=== PATIENT | male | born 1990 | race Hispanic/Latino ===

== ENCOUNTER 2022-03-20 15:46 | Observation (INO) | payer SELFPAY ==
[2022-03-20] MEDS ORDERED: HYDROCODONE/APAP 7.5/325 MG TAB ONE (17:52)
[2022-03-20] MEDS ORDERED: TETANUS & DIPHTHERIA TOX,ADULT 0.5 ML VIAL ONE (17:52)
--- NOTE | 2022-03-20 18:52 | ER ---
Nurse's Notes [facility] Name: Amari Hernandes Age: 31 yrs Sex: Male : 1990 Arrival Date: 03/20/2022 Time: 15:46 Bed 7 Private MD: Diagnosis: Laceration of extensor muscle, fascia and tendon of left index finger at wrist and hand level, initial encounter Presentation: 03/20 17:00 Chief complaint: Patient states: cut left index finger with serrated knife. Coronavirus iw screen: At this time, the client does not indicate any symptoms associated with coronavirus-19. Ebola Screen: Patient negative for fever greater than or equal to 101.5 degrees Fahrenheit, and additional compatible Ebola Virus Disease symptoms Patient denies exposure to infectious person. Patient denies travel to an Ebola-affected area in the 21 days before illness onset. No symptoms or risks identified at this time. Complicating Factors: There are no complicating factors for this patient. Initial Sepsis Screen: Does the patient meet any 2 criteria? No. Patient's initial sepsis screen is negative. Does the patient have a suspected source of infection? No. Patient's initial sepsis screen is negative. Risk Assessment: Do you want to hurt yourself or someone else? Patient reports no desire to harm self or others. Onset of symptoms was March 20, 2022. 17:00 Method Of Arrival: Ambulatory iw 17:00 Acuity: SHA 4 iw Historical: - Allergies: 17:01 No Known Allergies; iw - Home Meds: 19:22 None [Active]; ss - PMHx: 19:22 None; ss - PSHx: 19:22 None; ss - Immunization history:: Last tetanus immunization: unknown. - Social history:: Smoking status: Patient denies any tobacco usage or history of. Screenin:22 Abuse screen: Denies threats or abuse. Denies injuries from another. Nutritional ss screening: No deficits noted. Tuberculosis screening: Never had TB. Fall Risk None identified. Assessment: 17:15 General: Appears in no apparent distress. comfortable, Behavior is calm, cooperative. ss Pain: Complains of pain in dorsal aspect of middle phalanx of left index finger. Neuro: Level of Consciousness is awake, alert, obeys commands, Oriented to person, place, time, situation. Cardiovascular: Capillary refill < 3 seconds is brisk in bilateral fingers. Respiratory: Airway is patent Respiratory effort is even, unlabored, Respiratory pattern is regular, symmetrical. EENT: Nares are clear. Derm: Skin is intact, is healthy with good turgor. Musculoskeletal: No signs and/or symptoms reported regarding the musculoskeletal system. Injury Description: Laceration sustained to dorsal aspect of middle phalanx of left index finger is jagged, 0.5 to 2.5 cm long. 19:35 Reassessment: Patient appears in no apparent distress at this time. Patient and/or as6 family updated on plan of care and expected duration. Pain level reassessed. Patient is alert, oriented x 3, equal unlabored respirations, skin warm/dry/pink. pt denies pain at this time. Vital Signs: 17:00 Pulse 72; Resp 16; Temp 98.5; Pulse Ox 100% ; iw 17:04 BP 138 / 82; Pulse 76; Resp 16; Pulse Ox 98% ; ss 19:34 BP 153 / 98; Pulse 71; Resp 18 S; Pulse Ox 100% on R/A; Pain 0/10; as6 ED Course: 15:46 Patient arrived in ED. as 16:18 Eduard Lamar PA is PHCP. cp 16:18 Barbie Ortiz MD is Attending Physician. cp 17:01 Triage completed. iw 17:01 Arm band placed on. iw 17:46 Katiana Cramer, RAND is Primary Nurse. ss 18:27 XRAY Finger-Thumb Left In Process Unspecified. EDMS 18:49 Chante Moy PA is Hospitalizing Provider. cp 18:58 COVID-19 SARS RT PCR (Document "Date of Onset" if Symptomatic) Sent. ss 19:22 Patient has correct armband on for positive identification. Bed in low position. Call ss light in reach. 20:59 Danilo Souza is Hospitalizing Provider. cp 21:19 Inserted saline lock: 20 gauge in right antecubital area, using aseptic technique. lg3 21:30 No provider procedures requiring assistance completed. Patient admitted, IV remains in lg3 place. 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 Exp: ss 02/10/2024. Lot #: [id number]. } Route: IM; Site: right deltoid; 22:18 Follow up: Response: No adverse reaction as6 19:41 Not Given (Other Intervention Used): Lidocaine (2 %) 5 ml 5 ml Infiltration once; to as6 bedside Outcome: 18:51 Decision to Hospitalize by Provider. cp 19:22 Instructed on the need for admit. ss 21:30 Admitted to Med/surg accompanied by tech, via wheelchair, room 225. lg3 21:30 Condition: stable 22:18 Patient left the ED. as6 Signatures: Dispatcher [employer] EDMS Avis Caballero Irene, RN RN Katiana Cramer RN RN Eduard Lamar, RADHA PA Cindy Mcgregor RN RN lg3 Tate Gonsalez RN RN as6 Corrections: (The following items were deleted from the chart) : 19:22 General: Appears in no apparent distress. comfortable, Behavior is calm, ss cooperative, :31 19:22 Neuro: Level of Consciousness is awake, alert, obeys commands, Oriented to person, place, time, situation, : 19:22 Respiratory: Airway is patent Respiratory effort is even, unlabored, Respiratory ss pattern is regular, symmetrical, :31 19:22 Derm: Skin is intact, is healthy with good turgor, [facility] :31 19:22 Musculoskeletal: No signs and/or symptoms reported regarding the musculoskeletal ss system. 19: 19:22 Cardiovascular: Capillary refill < 3 seconds is brisk in bilateral fingers [facility] 19:31 19:22 EENT: Nares are clear [facility] 19:31 19:22 Injury Description: Laceration sustained to dorsal aspect of middle phalanx of ss left index finger is jagged, 0.5 to 2.5 cm long, :31 19:22 Pain: Complains of pain in dorsal aspect of middle phalanx of left index finger ssss
--- NOTE | 2022-03-20 18:52 | EDPHYS ---
Physician Documentation [facility] Name: Amari Hernandes Age: 31 yrs Sex: Male : 1990 Arrival Date: 03/20/2022 Time: 15:46 Bed 7 Private MD: ED Physician Barbie Ortiz HPI: 03/20 17:55 This 31 yrs old Male presents to ER via Ambulatory with complaints of cp Laceration - finger. 17:55 The patient or guardian reports a laceration, clean. The complaints affect the dorsal cp side middle phalanx left index finger. Context: The problem was sustained at work, resulted from use of knife. 17:55 Onset: The symptoms/episode began/occurred just prior to arrival. Associated signs and cp symptoms: Pertinent negatives: cyanosis distally, decreased sensation distally. Historical: - Allergies: 17:01 No Known Allergies; iw - Home Meds: 19:22 None [Active]; ss - PMHx: 19:22 None; ss - PSHx: 19:22 None; ss - Immunization history:: Last tetanus immunization: unknown. - Social history:: Smoking status: Patient denies any tobacco usage or history of. ROS: 18:00 Skin: Positive for laceration(s), of the left index finger. cp 18:00 Constitutional: Negative for body aches, chills, fever. cp 18:00 Respiratory: Negative for cough, shortness of breath, wheezing. 18:00 Abdomen/GI: Negative for abdominal pain. 18:00 Neuro: Negative for numbness, tingling. 18:00 All other systems are negative. Exam: 18:10 Head/Face: Normocephalic, atraumatic. cp 18:10 Constitutional: The patient appears in no acute distress, alert, awake, non-toxic, well developed, well nourished. 18:10 Cardiovascular: Rate: normal, Rhythm: regular. 18:10 Respiratory: the patient does not display signs of respiratory distress, Respirations: normal, no use of accessory muscles, no retractions, labored breathing, is not present, Breath sounds: are clear throughout, no decreased breath sounds, no stridor, no wheezing. 18:10 Abdomen/GI: Exam negative for discomfort, distension, guarding, Inspection: abdomen appears normal. 18:10 Skin: injury, laceration(s), the wound is approximately 3.5 cm(s), of the dorsal side middle phalanx left index finger, that can be described as clean, no foreign body, linear, with mild bleeding, extensor tendon appears injured as patient unable to fully extend left index finger. Vital Signs: 17:00 Pulse 72; Resp 16; Temp 98.5; Pulse Ox 100% ; iw 17:04 BP 138 / 82; Pulse 76; Resp 16; Pulse Ox 98% ; ss 19:34 BP 153 / 98; Pulse 71; Resp 18 S; Pulse Ox 100% on R/A; Pain 0/10; as6 Laceration: 20:00 Wound Repair of 3.5cm ( 1.4in ) subcutaneous laceration to dorsal aspect of middle cp phalanx of left index finger. Linear shaped.. Distal neuro/vascular/tendon intact. Anesthesia: Wound infiltrated with 4 mls of 2% lidocaine. Wound prep: Moderate cleansing by me, Wound irrigation by me. Skin closed with 4 4-0 Prolene using interrupted sutures and sterile technique. Dressed with Bacitracin, 4x4's. Patient tolerated well. MDM: 17:10 Patient medically screened. cp 18:23 Physician consultation: Dandy Patton MD was called at 18:20, was contacted at 18:20, cp regarding consult, patient's condition, wants patient admitted to hospitalist and will perform tendon repair tomorrow in OR. 18:50 Data reviewed: vital signs, nurses notes, radiologic studies, plain films. cp 18:50 Differential diagnosis: dislocation, open fracture, closed fracture, tendon laceration. cp Counseling: I had a detailed discussion with the patient and/or guardian regarding: the historical points, exam findings, and any diagnostic results supporting the discharge/admit diagnosis, radiology results, the need for further work-up and treatment in the hospital. 03/20 18:48 Order name: COVID-19 SARS RT PCR (Document "Date of Onset" if Symptomatic) 03/20 17:45 Order name: XRAY Finger-Thumb Left; Complete Time: 19:02 cp 03/20 18:20 Order name: Wound Care: please clean and irrigate wound; Complete Time: 19:41 cp 03/20 18:49 Order name: Dressing - Wound; Complete Time: 19:41 cp 03/20 18:49 Order name: Setup Suture Tray; Complete Time: 18:58 cp Administered Medications: 17:50 Drug: Hydrocodone-Acetaminophen (7.5 mg-325 mg) 1 tabs Route: PO; ss 21:19 Follow up: Response: No adverse reaction lg3 21:19 Follow up: Response: RASS: Alert and Calm (0) lg3 17:52 Drug: Tetanus-Diphtheria Toxoid Adult 0.5 ml {[employer]: [employer]. Exp: ss 02/10/2024. Lot #: [id number]. } Route: IM; Site: right deltoid; 22:18 Follow up: Response: No adverse reaction as6 19:41 Not Given (Other Intervention Used): Lidocaine (2 %) 5 ml 5 ml Infiltration once; to as6 bedside Disposition Summary: 03/20/22 18:51 Hospitalization Ordered Hospitalization Status: Observation cp Location: Telemetry/MedSurg (observation) cp Condition: Stable cp Problem: new cp Symptoms: have improved cp Bed/Room Type: Standard cp Room Assignment: [facility](03/20/22 20:45) Provider: Danilo Souza(03/20/22 20:59) cp Diagnosis - Laceration of extensor muscle, fascia and tendon of left index finger at wrist and cp hand level, initial encounter Forms: - Medication Reconciliation Form cp - SBAR form cp Addendum: 03/22/2022 18:37 Co-signature as Attending Physician, Barbie levine a2 Signatures: Dispatcher [employer] EDMaryjane Bullock RN RN Katiana Cramer RN RN Eduard Lamar PA PA cp Kiersten Resendez RN RN Barbie Ortiz MD MD ma2 Chante Moy PA PA sb3 Cindy Lozano RN lg3 Tate Gonsalez RN as6 Corrections: (The following items were deleted from the chart) 03/20 19:41 18:49 Sterile Gloves ordered. cp as6 20:45 18:51 cp cg 20:59 18:51 Chante Moy cp cp
--- NOTE | 2022-03-20 18:53 | RAD REPORT ---
EXAM DESCRIPTION: - Finger-Thumb Left - 03/20/2022 6:25 pm CLINICAL HISTORY: lacerationsecond digit COMPARISON: No comparisons FINDINGS: Three views of the left second digit obtained. No bone or joint abnormality identified. No air or foreign body in the soft tissues.
--- NOTE | 2022-03-20 19:01 | P.HP ---
Certification for Inpatient Patient admitted to: Observation With expected LOS: <2 Midnights Patient will require the following post-hospital care: None Practitioner: I am a practitioner with admitting privileges, knowledge of patient current condition, hospital course, and medical plan of care. Services: Services provided to patient in accordance with Admission requirements found in Title 42 Section 412.3 of the Code of Federal Regulations Patient History Date of Service: 03/20/22 Reason for admission: L Extensor Tendon Laceration History of Present Illness: Patient is a 31-year-old male with no medical problems who presented to the ED after cutting his left index finger with a serrated knife accidentally. Patient is primarily [place]-speaking. 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 In the ED, x-ray was negative for fracture or foreign body however it was visualized that an extensor tendon on left index finger was lacerated. Dr. Patton was called and wishes to operate on patient to repair tomorrow. Patient agrees and understands. He denies any pain at this time and reports good movement with his finger. Vital signs stable. Will admit patient for medical management. Allergies No Known Drug Allergies Allergy (Unverified 05/30/15 18:16) Unknown Home medications list reviewed: Yes - Past Medical/Surgical History Diabetic: No Past Medical History: Patient denies medical history Past Surgical History: Patient denies surgical history Psychosocial/ Personal History: Patient works at [employer]. - Family History Father -: Hypertension Mother -: Diabetes - Social History Smoking Status: Never smoker Alcohol use: No CD- Drugs: No Caffeine use: No Place of Residence: Home Review of Systems 10-point ROS is otherwise unremarkable Musculoskeletal: Other (Laceration L index finger. Denies pain) Physical Examination - Physical Exam General: Alert, In no apparent distress, Oriented x3 HEENT: Atraumatic, PERRLA, Mucous membr. moist/pink, EOMI, Sclerae nonicteric Neck: Supple, 2+ carotid pulse no bruit, No LAD, Without JVD or thyroid abnormality Respiratory: Clear to auscultation bilaterally, Normal air movement Cardiovascular: Regular rate/rhythm, Normal S1 S2 Gastrointestinal: Normal bowel sounds, No tenderness Musculoskeletal: No tenderness, Other (Laceration to L index finger extending into extensor tendon) Integumentary: No rashes Neurological: Normal gait, Normal speech, Normal strength at 5/5 x4 extr, Normal tone, Normal affect Assessment and Plan - Problems (Diagnosis) (1) Laceration of extensor tendon of hand Current Visit: Yes Status: Acute Qualifiers: Encounter type: initial encounter Laterality: left Qualified Code(s): S61.412A - Laceration without foreign body of left hand, initial encounter; S66.822A - Laceration of other specified muscles, fascia and tendons at wrist and hand level, left hand, initial encounter - Plan -NPO at midnight -IV fluids for hydration -Ancef for preoperative antibiotics -Dr. Patton to operate in the morning -Morphine as needed pain -Zofran as needed nausea -SCDs for DVT prophylaxis Discharge Plan: Home Plan to discharge in: 24 Hours - Advance Directives Does patient have a Living Will: No Does patient have a Durable POA for Healthcare: No - Code Status/Comfort Care Code Status Assessed: Yes (Full) Critical Care: No Time Spent Managing Pts Care (In Minutes): 50
[2022-03-20] MEDS ORDERED: LIDOCAINE 2% MPF 5 ML VIAL ONE (19:03)
[2022-03-20] MEDS ORDERED: MORPHINE 2 MG/ML SYR IV PRN (22:06)
[2022-03-20] MEDS ORDERED: ONDANSETRON 4 MG/2 ML VIAL IV PRN (22:06)
[2022-03-20] MEDS ORDERED: ACETAMINOPHEN 500 MG TAB PO PRN (22:06)
[2022-03-20] MEDS: NA CHLORIDE 0.9% 1,000 ML IV SCH (23:20)
[2022-03-21] MEDS: CEFAZOLIN 1 GM in NA CHLORIDE 0.9% 50 ML IVPB SCH ×2 (00:34→08:57)
[2022-03-21 04:32] VITALS: BMI 30.1
[2022-03-21 05:40] LABS: Urine Appearance Clear (Clear); Urine Bilirubin Negative (Negative); Urine Blood Negative (Negative); Urine Color Yellow (Yellow); Urine Glucose Negative (Negative); Urine Protein Negative (Negative); Urine Urobilinogen 0.2 mg/dL (0.2-1.0)
[2022-03-21 05:53] LABS: Urine Microscopic Reflex NO UMIC
[2022-03-21] MEDS: NA CHLORIDE 0.9% 1,000 ML IV SCH (09:03)
[2022-03-21] MEDS ORDERED: Ringers Lactate 1,000 ML IV ONE (11:39)
[2022-03-21] MEDS ORDERED: MIDAZOLAM HCL 2 MG/2 ML INJ ONE (14:05)
[2022-03-21] MEDS ORDERED: ONDANSETRON 4 MG/2 ML VIAL ONE ×2 (14:05→15:26)
[2022-03-21] MEDS ORDERED: LIDOCAINE 2% MPF 5 ML VIAL ONE (14:05)
[2022-03-21] MEDS ORDERED: FENTANYL CITR 100 MCG/2 ML ONE (14:05)
[2022-03-21] MEDS ORDERED: propofoL 200 MG/20 ML VIAL IV ONE (14:05)
[2022-03-21] MEDS ORDERED: CEFAZOLIN SODIUM 1 GM/VIAL ONE (14:31)
[2022-03-21] MEDS ORDERED: KETOROLAC 30 MG/ML INJ ONE (14:58)
[2022-03-21] MEDS: HYDROMORPHONE HCL 1 MG/ML INJ ONE ×4 (15:22→15:45)
[2022-03-21 15:46] VITALS: O2SAT 97
[2022-03-21] MEDS ORDERED: CODEINE 30MG/APAP 300MG TAB PO PRN (16:06)
[2022-03-21] MEDS ORDERED: CEPHALEXIN 250 MG CAP PO SCH (18:00)
--- NOTE | 2022-03-21 18:36 | P.DS ---
Admission Date: 03/20/22 Discharge Date: 03/21/22 Disposition: ROUTINE DISCHARGE Discharge Condition: FAIR Reason for Admission: L Extensor Tendon Laceration - Problems (1) Laceration of extensor tendon of hand Current Visit: Yes Status: Acute Qualifiers: Encounter type: initial encounter Laterality: left Qualified Code(s): S61.412A - Laceration without foreign body of left hand, initial encounter; S66.822A - Laceration of other specified muscles, fascia and tendons at wrist and hand level, left hand, initial encounter Brief History of Present Illness: Patient is a 31-year-old male with no medical problems who presented to the ED after cutting his left index finger with a serrated knife accidentally. Patient is primarily Indonesian-speaking. 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 In the ED, x-ray was negative for fracture or foreign body however it was visualized that an extensor tendon on left index finger was lacerated. Dr. Patton was contacted who recommended admission for surgical repair. Patient admitted for further management. Hospital Course: Patient placed on observation on the medical floor. Dr. Patton evaluated him and took him to OR, did a tendon repair. Patient cleared for discharge per Dr. Patton. He will follow-up with Dr. Patton next week in his office. Dr. Patton has prescribed him antibiotics. Vital Signs/Physical Exam: Temp Pulse Resp BP Pulse Ox 97.3 F 77 16 133/78 93 03/21/22 16:00 03/21/22 16:00 03/21/22 16:00 03/21/22 16:00 03/21/22 16:00 General: Alert, In no apparent distress, Oriented x3 HEENT: Mucous membr. moist/pink Neck: JVD not distended Respiratory: Clear to auscultation bilaterally, Normal air movement Cardiovascular: No edema, Regular rate/rhythm Gastrointestinal: Soft and benign, Non-distended Neurological: Normal strength at 5/5 x4 extr Home Medications: Codeine/APAP [Tylenol #3*] 1 tab PO Q4HP PRN #20 tab 03/21/22 New Medications: Codeine/APAP [Tylenol #3*] 1 tab PO Q4HP PRN #20 tab PRN Reason: Pain Scale 5-7 (Moderate) Diet: Regular Activity: Ad norberto Followup: Dandy Patton MD [ACTIVE - CAN ADMIT] - 1 Week NONE,NONE [Primary Care Provider] -
[2022-03-21 21:33] VITALS: BP 140/78; TEMP 97.8
--- NOTE | 2022-03-22 03:30 | OP ---
Surgeon: Dandy Patton MD Preoperative Diagnosis: Extensor tendon laceration, left index finger. Postoperative Diagnosis: Extensor tendon laceration, left index finger. Procedure Performed: Debridement skin, extensor tendon repair, splint, surgical dressing. Anesthesia: General. Description Of Procedure: After satisfactory induction of general anesthesia, left hand was prepped with Betadine scrub and Betadine paint. Dry sterile drapes were applied in the usual manner. The ar m was elevated, exsanguinated with an Esmarch, tourniquet inflated to 250 mmHg. The hand was placed on the Roto Lock table. Sutures from previous closure were removed. The wound was jet la vaged, irrigated with 1 L of dilute Betadine solution. The proximal distal identified and repaired with interrupted 4-0 Vicryl followed by running 5-0 Prolene. Tourniquet was released. The skin was closed with 4-0 Prolene horizontal mattresses. Dressed with Xeroform, 2-inch Rocio, and sp lint to the . The patient tolerated the procedure well and returned to recovery room. DENTON/ROCKY Voice ID: [id number] Report ID: [id number]
--- NOTE | 2022-03-22 03:39 | HP ---
Date of Admission: 03/20/2022 History Of Present Illness: The patient is a 31-year-old male, right-hand dominant, who was using a knife yesterday and cut his left index finger dorsal surface, presented to the ER because he was unable to flex the tendon. No medical problems. No surgery. Social History: Does not smoke. Does not drink. Medications: No medications. Allergies: NO ALLERGIES. Physical Examination: He is about 5 feet 5 inches, about 190 pounds. On examination, he has a laceration in dorsal surface of the left index finger, unable to extend the finger fully. Assessment: Laceration of extensor tendon of the left index finger. Plan: Tendon repair. DENTON/ROCKY Voice ID: [id number]
== END 2022-03-21 20:45 | disposition home or self-care (01) ==
LOC: ER 15:46 → ERHOLD 18:54 → 2ND 21:55
PROVIDERS: ADMIT Internal Medicine; ATTEND Internal Medicine
PROC: 0LQ80ZZ Repair Left Hand Tendon, Open Approach (ICD-10-PCS; principal; 2022-03-20)
PROC: 0HQGXZZ Repair Left Hand Skin, External Approach (ICD-10-PCS; 2022-03-20)
DX: S66.321A Laceration of extensor muscle, fascia and tendon of left index finger at wrist and hand level, initial encounter (principal); W26.0XXA Contact with knife, initial encounter; Y93.9 Activity, unspecified; Y92.511 Restaurant or cafe as the place of occurrence of the external cause; Y99.0 Civilian activity done for income or pay; Z23 Encounter for immunization; Z20.822 Contact with and (suspected) exposure to COVID-19; Z82.49 Family history of ischemic heart disease and other diseases of the circulatory system; Z83.3 Family history of diabetes mellitus
CPT/HCPCS: 81003; 90471; 90714; 99285; G0378; J0690; J1170; J2250; J2405; J2704; J3010; J7030; J7120; U0003

== ENCOUNTER 2022-08-14 21:57 | Emergency (ER) | payer OTHER ==
--- OUTSIDE RECORDS SUMMARY | 2022-08-14 22:00 | XMS REPORT | Continuity of Care Document ---
:1990 Author Organization [facility] Address [address] [place] [address] Care Team Providers Name Role Phone WHITLEY Attending Clinician Unavailable WHITLEY Admitting Clinician Unavailable Problems This patient has no known problems. Allergies, Adverse Reactions, Alerts This patient has no known allergies or adverse reactions. Medications This patient has no known medications. Procedures This patient has no known procedures. Encounters Start End Encounter Admission Attending Care Care Encounter Source Date/Time Date/Time Type Type Clinicians Facility Department ID 2022-06-19 2022-06-19 Outpatient MILAGROS DEXTER [address] [facility] 09:32:00 09:32:00 [place] [facility] Program Results This patient has no known results.
[2022-08-15 01:47] LABS: Hematocrit 37.8 % (39.6-49.0); Lymphocytes % 45.3 % (15.3-44.8); MPV 9.5 fL (7.6-11.3); RBC Red Blood Cell Count 4.16 M/uL (4.33-5.43)
[2022-08-15] MEDS ORDERED: MECLIZINE HCL 12.5 MG TAB ONE (01:48)
[2022-08-15] MEDS ORDERED: NA CHLORIDE 0.9% 1,000 ML ONE (01:48)
[2022-08-15 01:58] LABS: Potassium 3.4 mmol/L (3.5-5.1); Troponin High Sensitivity 10.2 pg/mL (<58.9)
[2022-08-15 02:49] LABS: Blood Morphology Comment NOT SEEN (NOT SEEN); Platelet Estimate ADEQ
--- NOTE | 2022-08-15 03:12 | ER ---
Nurse's Notes [facility] Name: Amari Hernandes Age: 32 yrs Sex: Male : 1990 Arrival Date: 08/14/2022 Time: 21:59 Bed 18 Private MD: Diagnosis: Dizziness and giddiness;Otitis media, unspecified, right ear;Hypertensive heart disease without heart failure Presentation: 08/14 22:15 Chief complaint: Patient states: dizziness and headache off and on x 1 week reports kl notices when sitting up from laying position. Coronavirus screen: Vaccine status: Patient reports being unvaccinated. Ebola Screen: Patient negative for fever greater than or equal to 101.5 degrees Fahrenheit, and additional compatible Ebola Virus Disease symptoms. Initial Sepsis Screen: Does the patient meet any 2 criteria? No. Patient's initial sepsis screen is negative. Does the patient have a suspected source of infection? No. Patient's initial sepsis screen is negative. Risk Assessment: Do you want to hurt yourself or someone else? Patient reports no desire to harm self or others. Onset of symptoms was August 07, 2022. 22:15 Method Of Arrival: Ambulatory 22:15 Acuity: SHA 3 Triage Assessment: 22:19 Headache History: Denies prior headaches. General: Appears in no apparent distress. kl comfortable, Behavior is calm, cooperative. Pain: Denies pain. Neuro: No deficits noted. Level of Consciousness is awake, alert, obeys commands, Oriented to person, place, time, situation, Underwriting Intern are equal bilaterally Moves all extremities. Full function Gait is steady, Speech is normal, Facial symmetry appears normal. Historical: - Allergies: 22:18 No Known Allergies; kl - Home Meds: 22:18 bp med [Active]; - PMHx: 22:18 Hypertensive disorder; - Immunization history:: Adult Immunizations not up to date. - Social history:: Smoking status: Patient denies any tobacco usage or history of. Screenin:58 Abuse screen: Denies threats or abuse. Nutritional screening: No deficits noted. ja4 Tuberculosis screening: No symptoms or risk factors identified. Assessment: 22:56 General: Appears in no apparent distress. Behavior is calm, cooperative, appropriate ja4 for age. Pain: Denies pain. Neuro: No deficits noted. Neuro: Reports blurred vision dizziness, headache. GI: Reports nausea, Patient currently denies. EENT: Reports right ear pain. Denies Parent/caregiver reports the patient having. Vital Signs: 22:15 BP 158 / 93; Pulse 71; Resp 18; Temp 97; Pulse Ox 98% ; Pain 0/10; kl 22:15 BP 158 / 93; Pulse 66; Resp 18; Temp 98(O); Pulse Ox 100% on R/A; Weight 90.72 kg; kl Height 5 ft. 9 in. (175.26 cm); Pain 0/10; 08/15 02:54 BP 138 / 81; Pulse 57; Resp 14; Pulse Ox 99% on R/A; ja4 08/14 22:15 Body Mass Index 29.53 (90.72 kg, 175.26 cm) ED Course: 08/14 21:59 Patient arrived in ED. bp1 22:18 Triage completed. kl 22:47 Jad Harding, RAND is Primary Nurse. ja4 22:50 Eduard Lamar PA is PHCP. cp 22:50 Maury Flowers MD is Attending Physician. cp 22:58 Bed in low position. Call light in reach. Side rails up X 1. ja4 22:58 No provider procedures requiring assistance completed. ja4 08/15 00:24 XRAY Chest (1 view) In Process Unspecified. EDMS 01:07 CT Head Brain wo Cont In Process Unspecified. EDMS 03:43 IV discontinued, intact, bleeding controlled, No redness/swelling at site. Pressure ja4 dressing applied. Administered Medications: 01:50 Drug: NS 0.9% 1000 ml Route: IV; Rate: 1 bolus; Site: left antecubital; ja4 01:51 Drug: Meclizine 25 mg Route: PO; ja4 Medication: 08/14 22:58 VIS not applicable for this client. ja4 Outcome: 08/15 03:12 Discharge ordered by . cp 03:43 Discharged to home ambulatory. ja4 03:43 Condition: stable 03:43 Discharge instructions given to patient, Instructed on discharge instructions, follow up and referral plans. medication usage, Demonstrated understanding of instructions, follow-up care, medications, Prescriptions given X 2. 03:44 Patient left the ED. ja4 Signatures: Dispatcher [employer] Ela Jean RN RN Eduard Marcus PA PA cp Paniauga, Brittany bp1 Allen, Jeremy, RN RN ja4
--- NOTE | 2022-08-15 03:13 | EDPHYS ---
Physician Documentation [facility] Name: Amari Hernandes Age: 32 yrs Sex: Male : 1990 Arrival Date: 08/14/2022 Time: 21:59 Bed 18 Private MD: ED Physician Maury Flowers HPI: 08/14 23:05 This 32 yrs old Male presents to ER via Ambulatory with complaints of cp Headache, Dizziness. 23:05 The patient presents with dizziness, lightheadedness. cp 23:05 Onset: The symptoms/episode began/occurred 1 week(s) ago. cp 23:05 Associated signs and symptoms: Pertinent positives: headache, near-syncope, cp lightheaded, right ear pain, Pertinent negatives: abdominal pain, chest pain, focal weakness, palpitations, vomiting. Severity of symptoms: in the emergency department the symptoms are unchanged despite home interventions. 23:05 Modifying factors: the symptoms are aggravated by standing up. Patient's baseline: cp Neuro: alert and fully oriented, Motor: no deficits, Ambulation: walks without assistance, Speech: normal. Historical: - Allergies: 22:18 No Known Allergies; kl - Home Meds: 22:18 bp med [Active]; kl - PMHx: 22:18 Hypertensive disorder; kl - Immunization history:: Adult Immunizations not up to date. - Social history:: Smoking status: Patient denies any tobacco usage or history of. ROS: 23:10 Constitutional: Negative for body aches, chills, fever, poor PO intake. cp 23:10 Cardiovascular: Negative for chest pain, edema, palpitations. cp 23:10 Respiratory: Negative for cough, shortness of breath, wheezing. 23:10 Eyes: Negative for injury, pain, redness, and discharge. cp 23:10 ENT: Positive for ear pain, Negative for drainage from ear(s), sinus congestion, sinus pain, sore throat, difficulty swallowing, difficulty handling secretions. 23:10 Neck: Negative for pain with movement, pain at rest, stiffness. 23:10 Abdomen/GI: Negative for abdominal pain, nausea, vomiting, and diarrhea. 23:10 Neuro: Positive for dizziness, headache, Negative for altered mental status, gait disturbance, numbness, syncope, tingling, weakness. 23:10 All other systems are negative. Exam: 23:17 Constitutional: The patient appears in no acute distress, alert, awake, comfortable, cp non-diaphoretic, well developed, well nourished. 23:17 Head/Face: Normocephalic, atraumatic. cp 23:17 Eyes: Periorbital structures: appear normal, Pupils: equal, round, and reactive to light and accomodation, Extraocular movements: intact throughout, Conjunctiva: normal, no exudate, no injection, Sclera: no appreciated abnormality, Lids and lashes: appear normal, bilaterally. 23:17 ENT: External ear(s): are unremarkable, Ear canal(s): are normal, clear, TM's: erythema, that is mild, on the right, Nose: is normal, Mouth: Lips: moist, Oral mucosa: pink and intact, moist, Posterior pharynx: Airway: no evidence of obstruction, patent. 23:17 Neck: ROM/movement: is normal, is supple, without pain, no range of motions limitations. 23:17 Chest/axilla: Inspection: normal. 23:17 Cardiovascular: Rate: normal, Rhythm: regular, Edema: is not appreciated, JVD: is not appreciated. 23:17 Respiratory: the patient does not display signs of respiratory distress, Respirations: normal, no use of accessory muscles, no retractions, labored breathing, is not present, Breath sounds: are clear throughout, no decreased breath sounds, no stridor, no wheezing. 23:17 Abdomen/GI: Inspection: abdomen appears normal, Palpation: abdomen is soft and non-tender, in all quadrants. 23:17 Back: pain, is absent, ROM is normal. 23:17 Neuro: Orientation: to person, place \T\ time. Mentation: is normal, Cerebellar function: is grossly normal, Motor: moves all fours, strength is normal, Sensation: is normal. 08/15 02:07 ECG was reviewed by the Attending Physician. cp Vital Signs: 08/14 22:15 BP 158 / 93; Pulse 71; Resp 18; Temp 97; Pulse Ox 98% ; Pain 0/10; kl 22:15 BP 158 / 93; Pulse 66; Resp 18; Temp 98(O); Pulse Ox 100% on R/A; Weight 90.72 kg; kl Height 5 ft. 9 in. (175.26 cm); Pain 0/10; 08/15 02:54 BP 138 / 81; Pulse 57; Resp 14; Pulse Ox 99% on R/A; ja4 08/14 22:15 Body Mass Index 29.53 (90.72 kg, 175.26 cm) kl MDM: 08/14 23:00 Patient medically screened. 08/15 03:11 Data reviewed: vital signs, nurses notes, lab test result(s), EKG, radiologic studies, cp CT scan, plain films. 03:11 Differential diagnosis: cardiac arrhythmia, CVA, hypovolemia, idiopathic dizziness, cp TIA. Test interpretation: by ED physician or midlevel provider: ECG, plain radiologic studies. Counseling: I had a detailed discussion with the patient and/or guardian regarding: the historical points, exam findings, and any diagnostic results supporting the discharge/admit diagnosis, the presence of at least one elevated blood pressure reading (>120/80) during this emergency department visit, lab results, radiology results, the need for outpatient follow up, a family practitioner, to return to the emergency department if symptoms worsen or persist or if there are any questions or concerns that arise at home. Response to treatment: the patient's symptoms have markedly improved after treatment, and as a result, I will discharge patient. 08/15 00:11 Order name: Basic Metabolic Panel; Complete Time: 02:16 08/15 02:16 Interpretation: Normal except: K 3.4. 08/15 00:11 Order name: CBC with Diff; Complete Time: 03:07 08/15 02:16 Interpretation: Normal except: RBC 4.16; HGB 13.2; HCT 37.8; GIAN% 41.0; LYM% 45.3. 08/15 00:11 Order name: CT Head Brain wo Cont 08/15 00:11 Order name: Troponin HS; Complete Time: 02:16 08/15 00:11 Order name: XRAY Chest (1 view) 08/15 01:51 Order name: Manual Differential; Complete Time: 03:07 EDMS 08/15 03:07 Interpretation: Reviewed. 08/15 00:11 Order name: Orthostatics 08/15 00:11 Order name: EKG; Complete Time: 00:12 08/15 00:11 Order name: Cardiac monitoring; Complete Time: 01:51 08/15 00:11 Order name: EKG - Nurse/Tech 08/15 00:11 Order name: IV Saline Lock; Complete Time: 01:51 08/15 00:11 Order name: Labs collected and sent; Complete Time: 01:51 08/15 00:11 Order name: O2 Per Protocol 08/15 00:11 Order name: O2 Sat Monitoring cp EC:07 Rate is 73 beats/min. Rhythm is regular. GA interval is normal. QRS interval is normal. cp QT interval is normal. T waves are Inverted in leads III, aVR. Interpreted by me. Reviewed by me. Administered Medications: 01:50 Drug: NS 0.9% 1000 ml Route: IV; Rate: 1 bolus; Site: left antecubital; ja4 01:51 Drug: Meclizine 25 mg Route: PO; ja4 Disposition Summary: 08/15/22 03:12 Discharge Ordered Location: Home cp Condition: Stable cp Diagnosis - Dizziness and giddiness cp - Otitis media, unspecified, right ear cp - Hypertensive heart disease without heart failure cp Followup: cp - With: Private Physician - When: 2 - 3 days - Reason: Recheck today's complaints Discharge Instructions: - Discharge Summary Sheet cp - Dizziness cp - Otitis Media, Adult cp - Hypertension, Adult cp - How to Take Your Blood Pressure cp Forms: - Medication Reconciliation Form cp - Thank You Letter cp - Antibiotic Education cp - Prescription Opioid Use cp Prescriptions: - Amoxicillin 875 mg Oral Tablet - take 1 tablet by ORAL route every 12 hours for 10 days; 20 tablet; Refills: 0, cp Product Selection Permitted - Meclizine 25 mg Oral Tablet - take 1 tablet by ORAL route every 8 hours As needed; 30 tablet; Refills: 0, cp Product Selection Permitted Addendum: 08/17/2022 07:33 Co-signature as Attending Physician, Maury Flowers MD I agree with the assessment and k dr plan of care. Signatures: Dispatcher [employer] EDEla Candelario RN RN kl Rittger, Kevin, MD MD [facility] Eduard Lamar PA PA cp Jad Harding RN RN ja4 Corrections: (The following items were deleted from the chart) 08/16 00:23 08/15 17:11 Constitutional: The patient appears in no acute distress, alert, awake, cp non-diaphoretic, non-toxic, well developed, well nourished, cp 08/16 00:08/15 17:11 Head/Face: Normocephalic, atraumatic. cp cp 08/16 00:08/15 17:11 Eyes: Periorbital structures: appear normal, Pupils: equal, round, and cp reactive to light and accomodation, Extraocular movements: intact throughout, Sclera: no appreciated abnormality, Lids and lashes: appear normal, bilaterally, cp 08/16 00:08/15 17:11 ENT: External ear(s): are unremarkable, Nose: is normal, Mouth: Lips: cp moist, Oral mucosa: pink and intact, moist, Posterior pharynx: Airway: no evidence of obstruction, patent, cp 08/16 00:08/15 17:11 Neck: ROM/movement: is normal, is supple, without pain, no range of motions cp limitations, cp 08/16 00:08/15 17:11 Chest/axilla: Inspection: normal, cp cp 08/16 00:08/15 17:11 Cardiovascular: Rate: normal, Rhythm: regular, Edema: is not appreciated, cp JVD: is not appreciated, cp 08/16 00:08/15 17:11 Respiratory: the patient does not display signs of respiratory distress, cp Respirations: normal, no use of accessory muscles, no retractions, labored breathing, is not present, Breath sounds: are clear throughout, no decreased breath sounds, no stridor, no wheezing, cp 08/16 00:08/15 17:11 Abdomen/GI: Inspection: abdomen appears normal, Bowel sounds: active, all cp quadrants, Palpation: soft, in all quadrants, nontender, in all quadrants, cp 08/16 00:08/15 17:11 Back: pain, is absent, ROM is normal, cp cp 08/16 00:08/15 17:11 Neuro: Orientation: to person, place \T\ time. Mentation: is normal, cp Cerebellar function: is grossly normal, Motor: moves all fours, strength is normal, Sensation: is normal, cp 08/16 00:08/15 17:11 Skin: cellulitis, is not appreciated, no rash present. cp cp
--- NOTE | 2022-08-15 11:56 | RAD REPORT ---
EXAM DESCRIPTION: RAD - Chest Single View - 08/15/2022 12:22 am CLINICAL HISTORY: 32 years Male, dizziness COMPARISON: None. TECHNIQUE: Single portable x-ray view of the chest performed on 08/15/2022 at 12:18 AM FINDINGS: The lungs are well expanded and are clear. There is no evidence of a pneumothorax. The cardiac silhouette is normal in size and configuration. The mediastinal contours are normal. No acute osseous abnormality is identified. No acute soft tissue abnormalities are seen. Lines and tubes: None. Free air: None IMPRESSION: No evidence of acute intrathoracic disease. Electronically signed by: Samia Carter DO 08/15/2022 12:49 AM CDT Due to temporary technical issues with the PACS/Fluency reporting system, reports are being signed by the in house radiologists without review as a courtesy to insure prompt reporting. The interpreting radiologist is fully responsible for the content of the report.
--- NOTE | 2022-08-15 12:11 | RAD REPORT ---
EXAM DESCRIPTION: CT - Head Brain Wo Cont - 08/15/2022 6:50 am CLINICAL HISTORY: 32 years, Male, dizziness COMPARISON: None FINDINGS: Multiple transaxial tomograms of the brain were obtained from the base of the skull to the vertex without contrast. 2-D multiplanar reformats and the coronal and sagittal plane were performed and reviewed. This exam was performed according to our departmental dose-optimization protocol, which includes auto mated exposure control, adjustment of the mA and/or kV according to patient size and/or use of iterat armani reconstruction technique. Brain parenchyma as well as the sebastian and white matter differentiation demonstrate to be unremarkable. There is no midline shift and/or mass effect. There is no evidence for acute hemorrhage. No focal ar eas of hypodensities. Lateral ventricles and cisterns displace normal appearance. No intra or ext ra axial fluid collections were seen. The calvarium is intact with no evidence for fracture. The visu alized portions of the paranasal sinuses and orbits demonstrate to be clear. IMPRESSION: No acute intracranial hemorrhage identified. Unremarkable CT scan of the head without contrast. Electronically signed by: Can Gillespie MD 08/15/2022 1:37 AM CDT Due to temporary technical issues with the PACS/Fluency reporting system, reports are being signed by the in house radiologists without review as a courtesy to insure prompt reporting. The interpreting radiologist is fully responsible for the content of the report.
--- NOTE | 2022-08-15 17:07 | EKG ---
Test Date: 2022-08-15 Test Time: 02:03:15 Public Address System Operator: QIANA MEASUREMENT RESULTS: Intervals: Rate: 73 OR: 146 QRSD: 96 QT: 374 QTc: 412 [place]: P: 30 OR: 146 QRS: 33 T: 6 INTERPRETIVE STATEMENTS: Normal sinus rhythm Normal ECG No previous ECG available for comparison Electronically Signed On 08-15-22 17:06:34 CDT by León Waters
[2022-08-15 19:04] VITALS: TEMP 98
[2022-08-15 19:06] VITALS: BP 138/81; O2SAT 99
== END 2022-08-15 03:44 | disposition home or self-care (01) ==
LOC: ER 21:57
DX: R42 Dizziness and giddiness (principal); H66.91 Otitis media, unspecified, right ear; I11.9 Hypertensive heart disease without heart failure
CPT/HCPCS: 93005; 85025; 80048; 36415; 84484; 70450; 71045; 99283; J8597; J7030

== ENCOUNTER 2022-09-03 13:09 | Emergency (ER) | payer OTHER ==
--- OUTSIDE RECORDS SUMMARY | 2022-09-03 13:13 | XMS REPORT | Continuity of Care Document ---
:1990 Author Organization [facility] t Address [address] [place] [address] Care Team Providers Name Role Phone PCP, PATIENT DOES NOT HAVE A Primary Care Physician Unavaila ble AMBREEN_FARHANA Attending Clinician Unavailable SANTIAGO GREY Attending Clinician Unavailable Santiago Beverly Attending Clinician AMBREEN_FARHANA Admitting Clinician Unavailable Problems This patient has no known problems. Allergies, Adverse Reactions, Alerts Allergy Allergy Status Severity Reaction(s) Onset Inactive Treating Comm ents Source Name Type Date Date Clinician NO KNOWN Drug Active [facility] Class [facility] of [facility] Social History Social Habit Start Date Stop Date Quantity Comments Source Exposure to 2022-05-20 2022-05-30 Not sure [facility] SARS-CoV-2 (event) 00:00:00 23:18:00 Medica l Branch Sex Assigned At [birth year] [facility] 00:00:00 00:00:00 [facility] Smoking Status Start Date Stop Date Source Unknown if ever smoked [facility] Medications Ordered Filled Start Stop Current Ordering Indication Dosage Frequency Signature Comments Components Source Medication Medication Date Date Medication? Clinician (SIG) Name Name albuterol Yes [id number] 2{puff} Inhale 2 [facility] 90 6-29 Puffs ity of mcg/actuati 00:00: every 4 Derik as on inhaler 00 (four) Medical hours as Branch needed for Wheezing or Shortness of Breath. ondansetron Yes [id number] 4mg Take 1 [facility] 4 mg tablet 6-29 tablet by ity of 00:00: mouth [place] 00 every 12 Medical (twelve) Branch hours as needed for Nausea and Vomiting (N/V). benzonatate Yes [id number] 100mg Take 1 [facility] 100 mg 6-29 capsule by ity of capsule 00:00: mouth 3 [place] 00 (three) Medical times Branch daily as needed for Cough. ibuprofen Yes [id number] 800mg Take 1 [facility] 800 mg 6-29 tablet by ity of tablet 00:00: mouth [place] 00 every 6 Medical (six) Branch hours as needed for Pain (scale 1-3) or Pain (scale 4-6). Vital Signs Vital Name Observation Time Observation Value Comments Source Systolic blood 2022-05-31 04:22:00 160 mm[facility]Hg[facility] Diastolic blood 2022-05-31 04:22:00 92 mm[Hg] Unive [facility] Heart rate 2022-05-31 04:22:00 92 /min [facility] Body temperature 2022-05-31 04:22:00 37.33 Hannah [facility] Respiratory rate 2022-05-31 04:22:00 18 /min [facility] Body height 2022-05-31 04:22:00 180.3 cm [facility] Body weight 2022-05-31 04:22:00 92.08 kg [facility] BMI 2022-05-31 04:22:00 28.31 kg/m2 [facility] Oxygen saturation in 2022-05-31 04:22:00 99 /min [facility] Arterial blood by [facility] Pulse oximetry [place] Procedures Procedure Date / Time Performed Performing Clinician Sourc e RAPID INFLUENZA A/B 2022-05-31 04:29:00 Jamir Zavala [facility] COVID-19 (ID NOW 2022-05-31 04:29:00 Jamir Zavala [facility] RAPID TESTING) [facility] NOTICE OF PRIVACY 2022-05-31 04:11:41 Doctor Unassigned, No [facility] PRACTICES Name [facility] Branch CONSENT/REFUSAL FOR 2022-05-31 04:10:42 [facility] Branch TREATMENT Encounters Start End Encounter Admission Attending Care Care Encounter Source Date/Time Date/Time Type Type Clinicians Facility Department ID 2022-06-19 2022-06-19 Outpatient AMBREEN_ASHOK DEXTER [id number] 09:32:00 09:32:00 [place] 0719 da [facility] 2022-05-30 2022-05-31 [id number] Univers 23:15:00 00:19:00 SANTIAGO zamarripa of [facility] 2022-05-30 2022-05-31 [facility] [id number] Univers 23:15:00 00:19:00 Santiago VAUGHAN [id number] i ty [facility] [id number] [facility] [id number] [facility] 084 Branch Results This patient has no known results.
[2022-09-03] MEDS ORDERED: ACETAMINOPHEN 500 MG TAB ONE (14:09)
[2022-09-03 14:19] LABS: Hematocrit 43.2 % (39.6-49.0); Lymphocytes % 31.7 % (15.3-44.8); MCV 93.4 fL (80-100); MPV 10.1 fL (7.6-11.3); RBC Red Blood Cell Count 4.63 M/uL (4.33-5.43)
--- NOTE | 2022-09-03 14:30 | RAD REPORT ---
EXAM DESCRIPTION: RAD - Chest Single View - 09/03/2022 2:11 pm CLINICAL HISTORY: CHEST PAIN COMPARISON: None TECHNIQUE: AP portable chest image was obtained 09/03/2022 2:11 pm . FINDINGS: Lungs are clear. Heart and vasculature are normal. No measurable pleural effusion and no p neumothorax. No acute bony abnormality seen. No acute aortic findings suspected. IMPRESSION: No acute cardiopulmonary process. No significant change from comparison study.
[2022-09-03 14:32] LABS: Albumin 3.7 g/dL (3.4-5.0); Bilirubin Direct 0.1 mg/dL (0-0.2); Bilirubin Total 0.5 mg/dL (0.2-1.0); Potassium 3.5 mmol/L (3.5-5.1); Protein, Total 7.5 g/dL (6.4-8.2); Troponin High Sensitivity 9.3 pg/mL (<58.9)
--- NOTE | 2022-09-03 15:43 | EDPHYS ---
Physician Documentation [facility] Name: Amari Hernandes Age: 32 yrs Sex: Male : 1990 Arrival Date: 09/03/2022 Time: 13:12 Bed 26 Private MD: ED Physician Fredis Bailey HPI: 09/03 15:41 This 32 yrs old Male presents to ER via Ambulatory with complaints of Chest kb Pain, Palpitations. 15:41 The patient or guardian reports chest pain that is located primarily in the anterior kb chest wall, left. The pain does not radiate. Associated signs and symptoms: Pertinent positives: headache, nausea, shortness of breath. The chest pain is described as a heaviness. Duration: The patient or guardian reports a single episode, that is now resolved. Modifying factors: The symptoms are alleviated by nothing. the symptoms are aggravated by nothing. Severity of pain: At its worst the pain was moderate in the emergency department the pain is unchanged. The patient has not experienced similar symptoms in the past. The patient has not recently seen a physician. Pt reports chest pain for 4 days. States he had palpitations, nausea and shortness of breath yesterday. Today having a headache, but other symptoms have resolved. . Historical: - Allergies: 13:52 No Known Allergies; kb3 - Home Meds: 13:52 BP med [Active]; High cholesterol medication [Active]; kb3 - PMHx: 13:52 Hypertensive disorder; Hypercholesterolemia; kb3 - PSHx: 13:52 None; kb3 - Immunization history:: Adult Immunizations up to date, Client reports receiving the 2nd dose of the Covid vaccine, Last tetanus immunization: up to date. - Social history:: Smoking status: Patient denies any tobacco usage or history of. ROS: 15:32 Constitutional: Negative for fever, chills, and weight loss. kb 15:32 Cardiovascular: Positive for chest pain, palpitations. 15:32 Respiratory: Positive for shortness of breath. 15:32 Abdomen/GI: Positive for nausea. 15:32 Neuro: Positive for headache. 15:32 All other systems are negative. Exam: 15:32 Constitutional: This is a well developed, well nourished patient who is awake, alert, kb and in no acute distress. Head/Face: Normocephalic, atraumatic. ENT: Moist Mucous membranes Cardiovascular: Regular rate and rhythm with a normal S1 and S2. No gallops, murmurs, or rubs. No pulse deficits. Respiratory: Respirations even and unlabored. No increased work of breathing. Talking in full sentences Abdomen/GI: Soft, non-tender. No distention Skin: Warm, dry with normal turgor. Normal color. MS/ Extremity: Pulses equal, no cyanosis. Neurovascular intact. Full, normal range of motion. Neuro: Awake and alert, GCS 15, oriented to person, place, time, and situation. Moves all extremities. Normal gait. Psych: Awake, alert, with orientation to person, place and time. Behavior, mood, and affect are within normal limits. 15:32 ECG was reviewed by the Attending Physician. Vital Signs: 12:40 BP 159 / 86; Pulse 72; Resp 18; Temp 98; Pulse Ox 100% ; Weight 92.08 kg; Height 5 ft. kb3 5 in. (165.10 cm); Pain 1/10; 13:30 BP 142 / 88; Pulse 72; Resp 18; Pulse Ox 100% ; kb3 14:00 BP 136 / 82; Pulse 73; Resp 18; Pulse Ox 99% ; kb3 15:00 BP 136 / 91; Pulse 67; Resp 18; Pulse Ox 100% ; kb3 16:00 BP 135 / 85; Pulse 65; Resp 18; Pulse Ox 100% ; kb3 12:40 Body Mass Index 33.78 (92.08 kg, 165.10 cm) kb3 MDM: 13:21 Patient medically screened. kb 15:32 Data reviewed: vital signs, nurses notes. Data interpreted: Pulse oximetry: on room air kb is 100 %. Interpretation: normal. Counseling: I had a detailed discussion with the patient and/or guardian regarding: the historical points, exam findings, and any diagnostic results supporting the discharge/admit diagnosis, lab results, radiology results, the need for outpatient follow up, a family practitioner, to return to the emergency department if symptoms worsen or persist or if there are any questions or concerns that arise at home. 09/03 13:29 Order name: Basic Metabolic Panel kb 09/03 13:29 Order name: CBC with Diff kb 09/03 13:29 Order name: D-Dimer kb 09/03 13:29 Order name: LFT's kb 09/03 13:29 Order name: Magnesium kb 09/03 13:29 Order name: NT PRO-BNP kb 09/03 13:29 Order name: Troponin HS kb 09/03 14:23 Order name: CBC with Automated Diff; Complete Time: 14:32 EDMS 09/03 14:32 Order name: Basic Metabolic Panel; Complete Time: 14:33 EDMS 09/03 14:32 Order name: Liver (Hepatic) Function; Complete Time: 14:33 EDMS 09/03 14:32 Order name: Troponin High Sensitivity; Complete Time: 14:33 EDMS 09/03 14:32 Order name: NT PRO-BNP; Complete Time: 14:33 EDMS 09/03 14:32 Order name: Magnesium; Complete Time: 14:33 EDMS 09/03 14:32 Order name: D-Dimer; Complete Time: 14:33 EDMS 09/03 13:29 Order name: XRAY Chest (1 view) kb 09/03 13:29 Order name: EKG; Complete Time: 13:30 kb 09/03 13:29 Order name: Cardiac monitoring; Complete Time: 13:51 kb 09/03 13:29 Order name: EKG - Nurse/Tech; Complete Time: 13:50 kb 09/03 13:29 Order name: IV Saline Lock; Complete Time: 13:50 kb 09/03 13:29 Order name: Labs collected and sent; Complete Time: 13:50 kb 09/03 13:29 Order name: O2 Per Protocol; Complete Time: 13:50 kb 09/03 13:29 Order name: O2 Sat Monitoring; Complete Time: 13:51 kb 09/03 14:32 Order name: RAD; Complete Time: 14:33 EDMS 09/03 14:36 Order name: COVID-19 SARS RT PCR (Document "Date of Onset" if Symptomatic) kb 09/03 14:36 Order name: Flu kb 09/03 15:26 Order name: SARS-COV-2 RT PCR; Complete Time: 15:31 EDMS 09/03 15:28 Order name: Influenza Screen (A ; Complete Time: 15:31 EDMS EC:32 Rate is 79 beats/min. Rhythm is regular. QRS [place] is Normal. TN interval is normal. QRS kb interval is normal at 88 msec. QT interval is normal at 401 msec. Administered Medications: 14:00 Drug: Tylenol 1000 mg Route: PO; kb3 15:00 Follow up: Response: No adverse reaction; Pain is decreased kb3 Disposition: 17:26 PA/[employer] OPERATOR's history reviewed, patient interviewed, and examined. I agree with assessment [id number] and care plan and confirm the diagnosis (es) above. Attestation: The patient's history, exam findings, diagnostics, and a summary of any interventions or procedures was reviewed in detail with Adriana BLAIR. Disposition Summary: 09/03/22 15:42 Discharge Ordered Location: Home kb Condition: Stable kb Diagnosis - Chest pain, unspecified kb Followup: kb - With: Emergency Department - When: As needed - Reason: Worsening of condition Followup: kb - With: Private Physician - When: 2 - 3 days - Reason: Recheck today's complaints, Continuance of care, Re-evaluation by your physician Discharge Instructions: - Discharge Summary Sheet kb - Nonspecific Chest Pain, Adult, [id number] kb - Palpitations, [id number] kb Forms: - Medication Reconciliation Form kb - Thank You Letter kb - Antibiotic Education kb - Prescription Opioid Use kb - Work release form kb3 Signatures: Dispatcher [employer] EDAdriana Grigsby FNP-C FNP-Fredis De La Cruz MD MD [id number] Bhavani Ashley, RN RN kb3
--- NOTE | 2022-09-03 15:43 | ER ---
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 Also reports while at work yesterday, he began feeling his heart beat fast, experienced a headache, mild SOB and nausea. Pt states the episodes only occur while working, he does not work outdoors or in the heat, and he has only very mild main in his left chest today. Pain is reproducible with palpation. 12:40 Coronavirus screen: Vaccine status: Patient reports receiving the 2nd dose of the covid kb3 vaccine. Client denies travel out of the [place] in the last 14 days. Ebola Screen: Patient negative for fever greater than or equal to 101.5 degrees Fahrenheit, and additional compatible Ebola Virus Disease symptoms Patient denies exposure to infectious person. Patient denies travel to an Ebola-affected area in the 21 days before illness onset. No symptoms or risks identified at this time. Initial Sepsis Screen: Does the patient meet any 2 criteria? No. Patient's initial sepsis screen is negative. Does the patient have a suspected source of infection? No. Patient's initial sepsis screen is negative. Risk Assessment: Do you want to hurt yourself or someone else? Patient reports no desire to harm self or others. Onset of symptoms was August 31, 2022. 12:40 Method Of Arrival: Ambulatory kb3 12:40 Acuity: SHA 2 kb3 Triage Assessment: 12:40 General: Appears in no apparent distress. comfortable, Behavior is calm, cooperative. kb3 12:40 Pain: Complains of pain in anterior aspect of left upper chest Pain does not radiate. kb3 Pain currently is 1 out of 10 on a pain scale. Quality of pain is described as stabbing, Pain began 4 days ago Is episodic. Cardiovascular: Reports chest pain, nausea, palpitations, Heart tones present Capillary refill < 3 seconds Patient's skin is warm and dry. Pulses are all present. Rhythm is sinus rhythm. Respiratory: Reports shortness of breath on exertion Breath sounds are clear bilaterally. Historical: - Allergies: 13:52 No Known Allergies; kb3 - Home Meds: 13:52 BP med [Active]; High cholesterol medication [Active]; kb3 - PMHx: 13:52 Hypertensive disorder; Hypercholesterolemia; kb3 - PSHx: 13:52 None; kb3 - Immunization history:: Adult Immunizations up to date, Client reports receiving the 2nd dose of the Covid vaccine, Last tetanus immunization: up to date. - Social history:: Smoking status: Patient denies any tobacco usage or history of. Screenin:45 Abuse screen: Denies threats or abuse. Denies injuries from another. Nutritional kb3 screening: No deficits noted. Tuberculosis screening: No symptoms or risk factors identified. Fall Risk None identified. Assessment: 12:45 Reassessment: No changes from previously documented assessment. General: See triage kb3 note. 12:45 Pain: Complains of pain in anterior aspect of left upper chest. kb3 15:03 General: Pt ambulatory to restroom without distress. kb3 Vital Signs: 12:40 BP 159 / 86; Pulse 72; Resp 18; Temp 98; Pulse Ox 100% ; Weight 92.08 kg; Height 5 ft. kb3 5 in. (165.10 cm); Pain 1/10; 13:30 BP 142 / 88; Pulse 72; Resp 18; Pulse Ox 100% ; kb3 14:00 BP 136 / 82; Pulse 73; Resp 18; Pulse Ox 99% ; kb3 15:00 BP 136 / 91; Pulse 67; Resp 18; Pulse Ox 100% ; kb3 16:00 BP 135 / 85; Pulse 65; Resp 18; Pulse Ox 100% ; kb3 12:40 Body Mass Index 33.78 (92.08 kg, 165.10 cm) kb3 ED Course: 12:40 Arm band placed on right wrist. EKG completed in triage. Results shown to kb3 12:45 No provider procedures requiring assistance completed. Patient maintains SpO2 kb3 saturation greater than 95% on room air. 12:45 Patient has correct armband on for positive identification. Bed in low position. Call kb3 light in reach. Client placed on continuous cardiac and pulse oximetry monitoring. NIBP monitoring applied. boom man on. Warm blanket given. 13:12 Patient arrived in ED. as 13:16 Adriana Guevara [facility]-C [facility]. kb 13:16 Fredis Bailey MD is Attending Physician. kb 13:21 Bhavani Ashley, RN is Primary Nurse. kb3 13:46 Initial lab(s) drawn, by me, sent to lab. Inserted saline lock: 20 gauge in right 3 antecubital area, using aseptic technique. Blood collected. 13:52 Triage completed. kb3 14:08 Basic Metabolic Panel Sent. kb3 14:08 CBC with Diff Sent. kb3 14:08 D-Dimer Sent. kb3 14:08 LFT's Sent. kb3 14:08 Magnesium Sent. kb3 14:08 NT PRO-BNP Sent. kb3 14:08 Troponin HS Sent. kb3 14:46 Flu Sent. dh3 14:46 COVID-19 SARS RT PCR (Document "Date of Onset" if Symptomatic) Sent. dh3 16:09 IV discontinued, intact, bleeding controlled, No redness/swelling at site. kb3 Administered Medications: 14:00 Drug: Tylenol 1000 mg Route: PO; kb3 15:00 Follow up: Response: No adverse reaction; Pain is decreased kb3 Medication: 12:45 VIS not applicable for this client. kb3 Outcome: 15:42 Discharge ordered by MD. kb 16:09 Discharged to home ambulatory. kb3 16:09 Condition: stable 16:09 Discharge instructions given to patient, Instructed on discharge instructions, follow up and referral plans. Demonstrated understanding of instructions, follow-up care. 16:09 Patient left the ED. kb3 Signatures: Adriana Guevara FNP-C FNP-Avis [facility] Bhavani Ashley, RN RN kb3
[2022-09-03 17:02] VITALS: O2SAT 100
[2022-09-03 17:03] VITALS: BP 135/85
--- NOTE | 2022-09-04 13:51 | EKG ---
Test Date: 2022-09-03 Test Time: 13:45:28 Fine Grade Operator: DIOGENES MEASUREMENT RESULTS: Intervals: Rate: 79 [place]: 128 QRSD: 88 QT: 350 QTc: 401 [place]: P: 22 [place]: 128 QRS: 24 T: 9 INTERPRETIVE STATEMENTS: Normal sinus rhythm Normal ECG No previous ECG available for comparison Electronically Signed On 09-04-22 13:50:29 CDT by Rhys Birmingham
== END 2022-09-03 16:09 | disposition home or self-care (01) ==
LOC: ER 13:09
DX: R07.9 Chest pain, unspecified (principal); I10 Essential (primary) hypertension; E78.00 Pure hypercholesterolemia, unspecified; Z20.822 Contact with and (suspected) exposure to COVID-19
CPT/HCPCS: 93005; 85025; 80048; 36415; 83735; 85379; 80076; 84484; 83880; 87804 ×2; 71045; 99285; U0003